=== PATIENT | female | born 1980 ===

== ENCOUNTER 2017-11-13 23:15 | Emergency (ER) | payer MEDICAID ==
[2017-11-13 23:54] VITALS: BP 111/73
--- NOTE | 2017-11-14 00:57 | ED PDOC ---
Arrival/HPI - General Chief Complaint: Lower Extremity Problem/Injury Time Seen by Provider: 11/14/17 00:06 Historian: Patient - History of Present Illness Narrative History of Present Illness (Text): 11/14/17 00:10 37 year old female, whose past medical history includes left lower extremity DVT on Xarelto, who presents to the emergency department complaining of continued pain in right leg. Patient states 4 days prior she was seen at [facility] for similar symptoms and had dopplers to rule out DVT which was negative. Patient presented today because she still has pain and is not sure if they possibly missed a blood clot. Patient also complaining of chronic back pain, and notes more pain in right lower back radiating to her right buttock and right leg. Patient denies any weakness/numbness/tingling in the extremity, abdominal pain, chest pain, fever, chills, chest pain, shortness of breath, urinary symptoms, or any other complaints. Symptom Onset: Gradual Symptom Course: Unchanged Activities at Onset: Light Context: Home Past Medical History - Provider Review Nursing Documentation Reviewed: Yes - Cardiac Hx Cardiac Disorders: No - Pulmonary Hx Respiratory Disorders: No - Neurological Hx Neurological Disorder: No - HEENT Hx HEENT Disorder: No - Renal Hx Renal Disorder: No - Endocrine/Metabolic Hx Endocrine Disorders: No - Hematological/Oncological Other/Comment: blood clot left leg - Integumentary Hx Dermatological Disorder: No - Musculoskeletal/Rheumatological Hx Musculoskeletal Disorders: No - Gastrointestinal Hx Gastrointestinal Disorders: No - Genitourinary/Gynecological Hx Genitourinary Disorders: No - Psychiatric Hx Psychophysiologic Disorder: No Hx Substance Use: No - Surgical History Hx Section: Yes Other/Comment: laporoscopy Family/Social History - Physician Review Nursing Documentation Reviewed: Yes Family/Social History: Unknown Family HX Smoking Status: Light Smoker < 10 Cigarettes Daily Hx Alcohol Use: No Frequency of alcohol use: Socially Hx Substance Use: No Allergies/Home Meds Allergies/Adverse Reactions: Allergies No Known Allergies Allergy (Verified 11/13/17 23:46) Home Medications: Home Meds Medication Instructions Recorded Confirmed Rivaroxaban [Xarelto] 20 mg PO DAILY 11/13/17 11/13/17 Review of Systems - Physician Review All systems were reviewed & negative as marked: Yes - Review of Systems Constitutional: Normal. absent: Fevers Eyes: Normal ENT: Normal Respiratory: Normal. absent: SOB, Cough Cardiovascular: Normal. absent: Chest Pain, Calf Pain Gastrointestinal: Normal. absent: Abdominal Pain, Diarrhea, Nausea, Vomiting Genitourinary Female: Normal. absent: Dysuria, Frequency, Hematuria, Urine Output Changes Musculoskeletal: Back Pain, Other (+right lower leg pain). absent: Neck Pain Skin: Normal. absent: Rash Neurological: Normal. absent: Headache, Dizziness Endocrine: Normal Hemo/Lymphatic: Normal Psychiatric: Normal Physical Exam Vital Signs Reviewed: Yes Vital Signs Temp Pulse Resp BP Pulse Ox 11/14/17 01:28 98.0 F 80 20 98 11/13/17 23:47 98.8 F 76 18 111/73 100 Temperature: Afebrile Blood Pressure: Normal Pulse: Regular Respiratory Rate: Normal Appearance: Positive for: Well-Appearing, Non-Toxic, Comfortable Pain Distress: None Mental Status: Positive for: Alert and Oriented X 3 - Systems Exam Head: Present: Atraumatic, Normocephalic Pupils: Present: PERRL Extroacular Muscles: Present: EOMI Conjunctiva: Present: Normal Mouth: Present: Moist Mucous Membranes Neck: Present: Normal Range of Motion. No: Meningeal Signs, MIDLINE TENDERNESS , Paraspinal Tenderness Respiratory/Chest: Present: Clear to Auscultation, Good Air Exchange. No: Respiratory Distress, Accessory Muscle Use Cardiovascular: Present: Regular Rate and Rhythm, Normal S1, S2. No: Murmurs Abdomen: Present: Normal Bowel Sounds. No: Tenderness, Distention, Peritoneal Signs Back: Present: Paraspinal Tenderness (Some right lower back paraspinal tenderness, tenderness over right sciatic foramen). No: CVA Tenderness, Midline Tenderness, Pain with Leg Raise Upper Extremity: Present: Normal Inspection. No: Cyanosis, Edema Lower Extremity: Present: Normal Inspection, NORMAL PULSES (Distal pulses intact ), Normal ROM (Full ROM), Neurovascularly Intact (Sensation intact), Capillary Refill < 2 s. No: Edema, CALF TENDERNESS, Cyanosis, Tenderness, Swelling, Erythema, Deformity, Temperature Abnormalties, Other (No ecchymosis) Neurological: Present: GCS=15, Speech Normal, Motor Func Grossly Intact, Normal Sensory Function, Normal Cerebellar Funct, Gait Normal Skin: Present: Warm, Dry, Normal Color. No: Rashes Psychiatric: Present: Alert, Oriented x 3, Normal Insight, Normal Concentration Medical Decision Making ED Course and Treatment: 11/14/17 00:10 Impression: 37 year old female with continued right leg pain and chronic back pain. Plan: -- US Duplex Lower Extremities -- Toradol -- Flexeril -- Reassess and disposition Progress Notes: Patient reassessment: Patient nontoxic well-appearing in no distress vitals are stable. Patient states there is minimal improvement in her symptoms but states that she has a follow-up appointment with her primary care physician tomorrow. Patient states she was extremely worried that she may have had a blood clot in the leg. Patient states her back pain has been chronic for more than 12 years. advised patient that she should consider having PMD arrange for outpatient MRI. I advised patient to follow up with primary care physician. I've advised the patient to follow up with Dr childs, advised taking Flexeril every 8 hours as needed for muscle spasms. Advised using warm compresses. I've advised immediate return if symptoms worsen or persist or if new concerning symptoms develop. pt refusing percocet for pain. Patient verbalizes understanding of discharge instructions and need for immediate followup. all aspects of this case were discussed the attending of record. 11/14/17 01:31 Impression: Leg pain, back pain Tylenol every 4 hours as needed for pain Flexeril one tablet every 8 hours as needed for muscle spasms colon may cause drowsiness Use a heating pad Follow-up with the primary care physician tomorrow Follow-up with the orthopedist/back specialist within the next 2 days Return immediately if symptoms worsen persist or if new concerning symptoms develop - RAD Interpretation Radiology Orders: 11/14/17 00:11 DUPLEX LOWER EXTRM VEIN RIGHT [US] Stat - Medication Orders Current Medication Orders: Discontinued Medications Cyclobenzaprine HCl (Flexeril) 10 mg PO STAT STA Stop: 11/14/17 00:33 Last Admin: 11/14/17 00:41 Dose: 10 mg Ketorolac Tromethamine (Toradol) 60 mg IM STAT STA Stop: 11/14/17 00:33 Last Admin: 11/14/17 00:42 Dose: 60 mg [facility] Pain Assessment Document 11/14/17 00:42 [email or web address] (Rec: 11/14/17 00:42 [email or web address] [id number]) Pain Reassessment Is this a pain reassessment? No Sleep Is patient sleeping during reassessment? No Presence of Pain Presence of Pain Yes Pain Scale Used Pain Scale Used Numeric Location Left, Right or Bilateral Right Pain Location Body Site Leg Description Description Constant Intensity of Pain at present 8 Pain Behavior Facial Grimacing Aggravating Factors Changing Position Alleviating Factors/Management Medication Techniques Alleviating Factors Medication IM Administration Charges Document 11/14/17 00:42 [email or web address] (Rec: 11/14/17 00:42 [email or web address] [id number]) Injection Site MAR Injection Site Right Gluteus Cruz Charges for Administration # of IM Administrations 1 - Scribe Statement The provider has reviewed the documentation as recorded by the Scribe Radha Martinez Provider Scribe Attestation: All medical record entries made by the Scribe were at my direction and personally dictated by me. I have reviewed the chart and agree that the record accurately reflects my personal performance of the history, physical exam, medical decision making, and the department course for this patient. I have also personally directed, reviewed, and agree with the discharge instructions and disposition. Disposition/Present on Arrival - Present on Arrival Any Indicators Present on Arrival: No History of DVT/PE: No History of Uncontrolled Diabetes: No Urinary Catheter: No History of Decub. Ulcer: No History Surgical Site Infection Following: None - Disposition Have Diagnosis and Disposition been Completed?: Yes Diagnosis: Leg pain, Back pain Disposition: HOME/ ROUTINE Disposition Time: 01:33 Patient Plan: Discharge Condition: GOOD Discharge Instructions (ExitCare): Back Pain (ED), Leg Pain (ED) Additional Instructions: Tylenol every 4 hours as needed for pain Flexeril one tablet every 8 hours as needed for muscle spasms colon may cause drowsiness Use a heating pad Follow-up with the primary care physician tomorrow Follow-up with the orthopedist/back specialist within the next 2 days Return immediately if symptoms worsen persist or if new concerning symptoms develop Prescriptions: Cyclobenzaprine [Cyclobenzaprine HCl] 10 mg PO Q8 #10 tab Referrals: Smith Traore MD [Primary Care Provider] - Follow up with primary Danny Childs MD [Staff Provider] - Follow up with primary Forms: [employer] (Maldivian)
[2017-11-14 01:29] VITALS: PULSE 80; TEMP 98
[2017-11-14 01:47] VITALS: RESP 18; O2SAT 99
--- NOTE | 2017-11-14 16:01 | US ---
PROCEDURE: Right lower extremity venous US HISTORY: Leg pain and swelling. Evaluate for DVT. PHYSICIAN(S): Sammy Faria M.D. TECHNIQUE: Duplex sonography and color-flow Doppler with graded compression were used to evaluate the deep venous system of the right lower extremity. FINDINGS: The visualized deep venous system of the right lower extremity is sonographically normal and compressible. Normal waveforms and augmentation are seen. There is no sonographic evidence for deep venous thrombosis in the visualized segments of the right lower extremity. IMPRESSION: 1. No sonographic evidence for deep venous thrombosis in the visualized segments of the right lower extremity.
== END 2017-11-14 01:47 | disposition home or self-care (01) ==
LOC: ED 23:15
DX: M79.604 Pain in right leg (principal); M54.9 Dorsalgia, unspecified; Z86.718 Personal history of other venous thrombosis and embolism; Z79.01 Long term (current) use of anticoagulants
CPT/HCPCS: 93971; 96372; 99283; J1885

== ENCOUNTER 2017-12-05 14:15 | Emergency (ER) | payer MEDICAID ==
[2017-12-05 14:35] VITALS: TEMP 99.2
--- NOTE | 2017-12-05 14:53 | ED PDOC ---
Arrival/HPI - General Chief Complaint: Lower Extremity Problem/Injury Time Seen by Provider: 12/05/17 14:48 Historian: Patient - History of Present Illness Narrative History of Present Illness (Text): 12/05/17 14:48 37 y/o female, pmh including dvt (on xarelto), nkda, c/o concerning of DVT on the LLE. Pt. stated that she has varicose vein form on the lt. lower extremity for the past 1 week, no numbness or tingling, no rash, no abdominal or pelvic pain, no other medical or psychological complaints. Past Medical History - Provider Review Nursing Documentation Reviewed: Yes - Infectious Disease Hx of Infectious Diseases: None - Reproductive Menopause: No - Cardiac Hx Cardiac Disorders: No - Pulmonary Hx Respiratory Disorders: No - Neurological Hx Neurological Disorder: No - HEENT Hx HEENT Disorder: No - Renal Hx Renal Disorder: No - Endocrine/Metabolic Hx Endocrine Disorders: No - Hematological/Oncological Other/Comment: blood clot left leg - Integumentary Hx Dermatological Disorder: No - Musculoskeletal/Rheumatological Hx Musculoskeletal Disorders: No - Gastrointestinal Hx Gastrointestinal Disorders: No - Genitourinary/Gynecological Hx Genitourinary Disorders: No - Psychiatric Hx Psychophysiologic Disorder: No Hx Substance Use: No - Surgical History Hx Section: Yes Other/Comment: laporoscopy - Anesthesia Hx Anesthesia: Yes Hx Anesthesia Reactions: No Family/Social History - Physician Review Nursing Documentation Reviewed: Yes Family/Social History: Unknown Family HX Smoking Status: Light Smoker < 10 Cigarettes Daily Hx Alcohol Use: No Hx Substance Use: No Allergies/Home Meds Allergies/Adverse Reactions: Allergies No Known Allergies Allergy (Verified 12/05/17 14:35) Home Medications: Home Meds Medication Instructions Recorded Confirmed Rivaroxaban [Xarelto] 20 mg PO DAILY 11/13/17 12/05/17 Review of Systems - Review of Systems Constitutional: absent: Fatigue, Fevers Eyes: absent: Vision Changes ENT: absent: Hearing Changes Respiratory: absent: SOB, Cough Cardiovascular: absent: Chest Pain Gastrointestinal: absent: Abdominal Pain, Nausea, Vomiting Musculoskeletal: absent: Arthralgias, Back Pain Skin: absent: Rash, Pruritis Psychiatric: absent: Anxiety, Depression, Suicidal Ideation Physical Exam Vital Signs Reviewed: Yes Vital Signs Temp Pulse Resp BP Pulse Ox 12/05/17 16:39 73 18 108/68 100 12/05/17 14:30 99.2 F 72 16 113/67 99 Temperature: Afebrile Blood Pressure: Normal Pulse: Regular Respiratory Rate: Normal Appearance: Positive for: Well-Appearing, Non-Toxic, Comfortable Pain Distress: None Mental Status: Positive for: Alert and Oriented X 3 - Systems Exam Head: Present: Atraumatic, Normocephalic Pupils: Present: PERRL Extroacular Muscles: Present: EOMI Conjunctiva: Present: Normal Ears: Present: NORMAL TM, Normal Canal. No: Erythema Mouth: Present: Moist Mucous Membranes Pharnyx: Present: Normal. No: ERYTHEMA, EXUDATE, TONSILS ENLARGED Nose (External): Present: Atraumatic. No: Abrasion, Contusion, Laceration Nose (Internal): Present: Normal Inspection, No Active Bleeding. No: Rhinorrhea Neck: Present: Normal Range of Motion, Trachea Midline. No: Meningeal Signs, MIDLINE TENDERNESS, Paraspinal Tenderness, Lymphadenopathy Respiratory/Chest: Present: Clear to Auscultation, Good Air Exchange. No: Respiratory Distress, Accessory Muscle Use Cardiovascular: Present: Regular Rate and Rhythm, Normal S1, S2. No: Murmurs Abdomen: Present: Normal Bowel Sounds. No: Tenderness, Distention, Peritoneal Signs, Rebound, Guarding Back: Present: Normal Inspection Upper Extremity: Present: Normal Inspection. No: Cyanosis, Edema Lower Extremity: Present: Normal Inspection, Other (visible mild varicose vein noted on the LLE, no bleeding, no streaking or ulcers. ). No: Edema Neurological: Present: GCS=15, CN II-XII Intact, Speech Normal, Motor Func Grossly Intact, Gait Normal, Memory Normal Skin: Present: Warm, Dry, Normal Color. No: Rashes Psychiatric: Present: Alert, Oriented x 3, Normal Insight, Normal Concentration Medical Decision Making ED Course and Treatment: 12/05/17 14:58 -LLE venuous doppler -observe and reassess 12/05/17 16:27 -LLE Venuous doppler: as per preliminary report, no acute DVT -Pt. stated that she feels well, will discharge home. -Pt. stated that she has a vascular surgeon to follow up on for her varicose vein. -Discharge home with education on continue to follow up with your vascular surgeon and pmd within 2 days, return to the ER for any new or worsening signs or symptoms. - RAD Interpretation Radiology Orders: 12/05/17 14:48 DUPLEX LOWER EXTRM VEIN LEFT [US] Stat LLE venuous doppler: as per preliminary report, no acute DVT Clinical Engineering Director: Radiologist - PA / CHANNEL DIRECTOR / Resident Statement MD/DO has reviewed & agrees with the documentation as recorded. Disposition/Present on Arrival - Present on Arrival Any Indicators Present on Arrival: No History of DVT/PE: No History of Uncontrolled Diabetes: No Urinary Catheter: No History of Decub. Ulcer: No History Surgical Site Infection Following: None - Disposition Have Diagnosis and Disposition been Completed?: Yes Diagnosis: Varicose vein of leg Disposition: HOME/ ROUTINE Disposition Time: 14:58 Patient Plan: Discharge Condition: GOOD Discharge Instructions (ExitCare): Varicose Veins and Other Vein Disease in the Legs Additional Instructions: -Discharge home with education on continue to follow up with your vascular surgeon and pmd within 2 days, return to the ER for any new or worsening signs or symptoms. Referrals: Smith Traore MD [Primary Care Provider] - Follow up with primary Forms: [employer] (Turkish), WORK NOTE
[2017-12-05 16:40] VITALS: BP 108/68; PULSE 73; RESP 18; O2SAT 100
--- NOTE | 2017-12-06 13:21 | US ---
PROCEDURE: Left lower extremity venous US HISTORY: Leg pain and swelling. Evaluate for DVT. PHYSICIAN(S): Sammy Faria MD. TECHNIQUE: Duplex sonography and color-flow Doppler with graded compression were used to evaluate the deep venous system of the left lower extremity. FINDINGS: The visualized deep venous system of the left lower extremity is sonographically normal and compressible. Normal wave forms and augmentation are seen. There is no sonographic evidence for deep venous thrombosis in the visualized segments of the left lower extremity. IMPRESSION: 1. No sonographic evidence for deep venous thrombosis in the visualized segments of the left lower extremity.
== END 2017-12-05 16:40 | disposition home or self-care (01) ==
LOC: ED 14:15
DX: I83.92 Asymptomatic varicose veins of left lower extremity (principal)

== ENCOUNTER 2018-01-14 19:27 | Emergency (ER) | payer MEDICAID ==
[2018-01-14 19:53] VITALS: BP 105/70; TEMP 98; BMI 32.3
--- NOTE | 2018-01-14 19:55 | ED PDOC ---
Arrival/HPI - General Chief Complaint: Chest Pain Time Seen by Provider: 01/14/18 19:55 Historian: Patient - History of Present Illness Narrative History of Present Illness (Text): 01/14/18 19:55 pt p/w + substernal chest pain, non-radiating over the last 2 days; + intermittent, lasting usually 10-15min; pt states at most pain is 6-7/10; + at times pleuritic; pt states the chest pain had initially started many months earlier and had been evaluated at [facility] [place] on multiple occasions (at least 2-3 times at the ED of [facility] [place] without any firm diagnosis (was prescribed PEPCID, no improvement of pt's symptoms however); pt is due to see a cardiologists this Saturday; pt states she is worried about this current episode of chest pain and decided to come to [facility] for further eval/exam; pt states + chest pain is associated with worsening sob, No palpitations, + dizziness/lightheadedness, no fever/chills/sweats, no abd pain, no n/v, no numbness/tingling, no radiation of chest pain but noted the last 2 days the chest pain has slightly expanded on her chest; pt states no rashes, no urinary/bowel changes, no fall/trauma/sick contact, no travel. pt denied LOC pt denied other complaints pt is here for further eval. PMD: Dr Traore hematology/onc: Dr Webber? (at [place]) family hx: cancer, no one with early IN hx recent hx of left leg dvt, is on xarelto pt states she is here for 2nd opinion LMP: 2 weeks ago Time/Duration: < week (2 days) Symptom Onset: Sudden Quality: Tightness, Stabbing Severity Level: 7, Severe Activities at Onset: Rest Context: Home Past Medical History - Provider Review Nursing Documentation Reviewed: Yes - Travel History Have you recently traveled outside [place] w/in the past 3 mons?: No - Past History Past History: No Previous - Infectious Disease Hx of Infectious Diseases: None - Reproductive Menopause: No Currently : No - Cardiac Hx Cardiac Disorders: Yes - Pulmonary Hx Respiratory Disorders: No - Neurological Hx Neurological Disorder: Yes Hx Dizziness: Yes - HEENT Hx HEENT Disorder: No - Renal Hx Renal Disorder: No - Endocrine/Metabolic Hx Endocrine Disorders: No - Hematological/Oncological Hx Blood Disorders: Yes Hx Anemia: Yes (iron deficiency) Other/Comment: blood clot left leg - Integumentary Hx Dermatological Disorder: No - Musculoskeletal/Rheumatological Hx Musculoskeletal Disorders: No - Gastrointestinal Hx Gastrointestinal Disorders: No - Genitourinary/Gynecological Hx Genitourinary Disorders: No Other/Comment: ovarian cyst removed - laparscopic - Psychiatric Hx Psychophysiologic Disorder: No Hx Substance Use: No - Surgical History Hx Section: Yes Other/Comment: laporoscopy - ovarian cyst removal - Anesthesia Hx Anesthesia: Yes Hx Anesthesia Reactions: No Family/Social History - Physician Review Nursing Documentation Reviewed: Yes Family/Social History: No Known Family HX Smoking Status: Light Smoker < 10 Cigarettes Daily Hx Alcohol Use: Yes Frequency of alcohol use: Socially Hx Substance Use: No Hx Substance Use Treatment: No Allergies/Home Meds Allergies/Adverse Reactions: Allergies No Known Allergies Allergy (Verified 12/05/17 14:35) Home Medications: Home Meds Medication Instructions Recorded Confirmed Rivaroxaban [Xarelto] 20 mg PO DAILY 11/13/17 01/14/18 Famotidine [Pepcid] 20 mg PO DAILY 01/14/18 01/14/18 Review of Systems - Review of Systems Constitutional: Normal Eyes: Normal ENT: Normal Respiratory: SOB Cardiovascular: Chest Pain Gastrointestinal: Normal Genitourinary Female: Normal Musculoskeletal: Normal Skin: Normal Neurological: Dizziness. absent: Headache, Focal Weakness Endocrine: Normal Hemo/Lymphatic: Normal Psychiatric: Normal Physical Exam Vital Signs Reviewed: Yes Vital Signs Temp Pulse Resp BP Pulse Ox 01/14/18 22:01 74 22 105/70 100 01/14/18 19:40 98.0 F 80 17 105/70 99 Temperature: Afebrile Blood Pressure: Normal Pulse: Regular Respiratory Rate: Normal Appearance: Positive for: Well-Appearing, Non-Toxic, Uncomfortable, Other ( uncomfortable, alert/awake, GCS=15, oriented x 3, NAD, cooperative, resting in bed) Pain Distress: None Mental Status: Positive for: Alert and Oriented X 3 - Systems Exam Head: Present: Atraumatic, Normocephalic Pupils: Present: PERRL, Other (no nystagmus, no photophobia, sclera anicteric) Extroacular Muscles: Present: EOMI Conjunctiva: Present: Normal Ears: Present: Normal Mouth: Present: Moist Mucous Membranes, Normal Teeth, Other (no dysphonia, no drooling) Pharnyx: Present: Normal Nose (External): Present: Atraumatic Nose (Internal): Present: Normal Inspection Neck: Present: Normal Range of Motion, Trachea Midline. No: Meningeal Signs, MIDLINE TENDERNESS Respiratory/Chest: Present: Clear to Auscultation, Good Air Exchange, Other ( CTA b/l, no w/r/r, no accessory muscle use noted, no tachypenia; no central chest wall crepitus/tenderness noted on exam). No: Respiratory Distress, Accessory Muscle Use, Decreased Breath Sounds Cardiovascular: Present: Regular Rate and Rhythm, Normal S1, S2. No: Murmurs Abdomen: Present: Normal Bowel Sounds, Other (well nourished/slightly obese female, no focal tenderness, no masses/rebound/gurading/rigidity, no traore's sign, no mcburney's point tenderness) Back: Present: Normal Inspection. No: CVA Tenderness, Midline Tenderness Upper Extremity: Present: Normal Inspection, Normal ROM, NORMAL PULSES, Other ( moving all limbs with ease) Lower Extremity: Present: Normal Inspection, NORMAL PULSES, Normal ROM, Neurovascularly Intact, Capillary Refill < 2 s, Other (strength 5/5 grossly intact in all limbs). No: Alvaro's Sign, Deformity Neurological: Present: GCS=15, CN II-XII Intact, Speech Normal, Other (no facial asymmetries, no slurr speech) Skin: Present: Warm, Dry, Normal Color, Other (cap refill < 1sec, no ulcerations , no petechiae, no rashes) Psychiatric: Present: Alert, Oriented x 3 Medical Decision Making ED Course and Treatment: 01/14/18 19:50 Impression: chest pain i have consider all the differential diagnosis regarding pt's chief medical complaints/clinical findings, including but are not limited to: atypical chest pain A/P: chest pain - labs - iv - ct - unlikely acs - observe - supportive care 01/14/18 23:11 pt felt some improvement pt chest pain is ~ 3-4/10 pt is made aware of her medical results pt has an appointment with cardiology in 3 days as well as to see her PCP tomorrow pt will f/u pt will be discharged home Re-evaluation Time: 23:00 Reassessment Condition: Re-examined, Improved - Lab Interpretations Lab Results: 01/14/18 20:13 01/14/18 20:13 Lab Results 01/14/18 20:15: Urine Color Yellow, Urine Appearance Sl cloudy, Urine pH 6.0, Ur Specific [place] 1.025, Urine Protein Negative, Urine Glucose (UA) Negative, Urine Ketones Trace H, Urine Blood Large H, Urine Nitrate Negative, Urine Bilirubin Negative, Urine Urobilinogen 0.2, Ur Leukocyte Esterase Negative, Urine RBC 2 - 5, Urine WBC 0 - 2, Ur Epithelial Cells 4 - 5, Urine Bacteria Few 01/14/18 20:13: PT 22.4 H, INR 1.94 H, APTT 30.7 01/14/18 20:13: Sodium 140, Potassium 4.7, Chloride 105, Carbon Dioxide 28, Anion Gap 12, BUN 15, Creatinine 0.7, Est GFR ( Amer) > 60, Est GFR (Non- Af Amer) > 60, Random Glucose 86, Calcium 9.2, Magnesium 2.0, Total Bilirubin 0.5, AST 41 H, ALT 32, Alkaline Phosphatase 58, Lactate Dehydrogenase 741 H, Total Creatine Kinase 63, Troponin I 0.02, NT-Pro-B Natriuret Pep 33.9, Total Protein 7.7, Albumin 3.9, Globulin 3.8, Albumin/Globulin Ratio 1.0 L 01/14/18 20:13: WBC 9.6, RBC 4.38, Hgb 10.1 L, Hct 32.2 L, MCV 73.5 L, MCH 23.1 L, MCHC 31.4, RDW 14.6 H, Plt Count 384, MPV 10.2, Gran % 63.0, Lymph % (Auto) 28.3, [place] % (Auto) 7.7 H, Eos % (Auto) 0.9 L, Baso % (Auto) 0.1, Gran # 6.05, Lymph # (Auto) 2.7, [place] # (Auto) 0.7 H, Eos # (Auto) 0.1, Baso # (Auto) 0.01 I have reviewed the lab results: Yes Interpretation: All labs normal - RAD Interpretation Narrative RAD Interpretations (Text): 01/14/18 23:08 Patient Name: ELAINE RAMÍREZ Pt. Address: [address] [place] [address] Rec #: [id number] [place] [id number] Ordering Dr: South Morales MD Pt Order Location: ED : 1980 Female Age: 37 Order #: [id number] Reason for exam: hx of left leg dvt, now with chest pain CT Scan ANGIO CHEST PE PROTOCOL Exam Date: 01/14/18 This imaging exam was performed at [facility] EXAM: CT Angiography Chest With Intravenous Contrast CLINICAL HISTORY: 37 years old, female; Pain; Chest pain; Type not specified; Additional info: HX of left leg dvt, now with chest pain TECHNIQUE: Axial computed tomographic angiography images of the chest with intravenous contrast using pulmonary embolism protocol. All CT scans at this facility use one or more dose reduction techniques, viz.: automated exposure control; ma/kV adjustment per patient size (including targeted exams where dose is matched to indication; i.e. head); or iterative reconstruction technique. MIP reconstructed images were created and reviewed. Coronal and sagittal reformatted images were created and reviewed. CONTRAST: 100 mL of OMNI 350 administered intravenously. COMPARISON: DX - CHEST PORTABLE 2018-01-14 20:22 FINDINGS: Limitations: Motion artifact - mild. Pulmonary arteries: No definite pulmonary embolism. Aorta: No aneurysm. No dissection. Lungs: No consolidation. 0.2 cm RIGHT lower lobe nodule. Pleural space: No significant effusion. No pneumothorax. Heart: Borderline cardiomegaly. No significant pericardial effusion. Bones/joints: Mild levoscoliosis. No acute fracture. Soft tissues: Unremarkable. Lymph nodes: No pathologically enlarged lymph nodes. IMPRESSION: 1. No definite CT evidence of pulmonary embolism. 2. Pulmonary nodule. For low-risk patients, no follow-up is necessary. For high-risk patients (smoking history or other known risk factors) an optional CT at 12 months could be performed. 3. Incidental/non-acute findings are described above. Dictated By: Paolo Jimenez MD Dictated Date/Time: 01/14/182221 Signed By: Paolo Jimenez MD Date Signed: 2221 Transcribed By: JILLIAN Transcribe Date/Time : 01/14/182221 Radiology Orders: 01/14/18 19:56 CHEST PORTABLE [RAD] Stat 01/14/18 19:57 ANGIO CHEST PE PROTOCOL [CT] Stat Yard Engineer: Radiologist - EKG Interpretation EKG Interpretation (Text): 01/14/18 20:20 NSR at 80 bpm, normal axis, no ectopy, no st-t changes, NORMAL EKG; no old ekg to compare with Interpreted by ED Physician: Yes Type: 12 lead EKG Comparison: No previous EKG avail. - Medication Orders Current Medication Orders: Discontinued Medications Ketorolac Tromethamine (Toradol) 30 mg IVP STAT STA Stop: 01/14/18 22:34 Last Admin: 01/14/18 22:46 Dose: 30 mg MAR Pain Assessment Document 01/14/18 22:46 CNR (Rec: 01/14/18 22:46 CNR [id number]) Pain Reassessment Is this a pain reassessment? Yes IVP Administration Document 01/14/18 22:46 CNR (Rec: 01/14/18 22:46 CNR [id number]) Charges for Administration # of IVP Administrations 1 Disposition/Present on Arrival - Present on Arrival Any Indicators Present on Arrival: No History of DVT/PE: Yes History of Uncontrolled Diabetes: No Urinary Catheter: No History of Decub. Ulcer: No History Surgical Site Infection Following: None - Disposition Have Diagnosis and Disposition been Completed?: Yes Diagnosis: Chest pain of unknown etiology, Pulmonary nodule Disposition: HOME/ ROUTINE Disposition Time: 22:57 Patient Plan: Discharge Condition: STABLE Discharge Instructions (ExitCare): Chest Pain (ED), Pulmonary Nodule Print Language: CENTRAL AFRICAN Additional Instructions: Make sure to see your doctor in 1-2 days DRINK PLENTY OF FLUIDS take your medications as prescribed RETURN TO ED IF worse pain, cant breath, persistent vomiting, high fever >101- 102 for hours, altered behavior, slurr speech, facial changes, focal weakness ( arm/leg or both), unable to urinate, heavy/persistent bleeding, passing out, chest pain, or other medical emergencies Prescriptions: Ibuprofen [Motrin] 400 mg PO QID PRN #20 tab PRN Reason: Pain, Mild (1-3) Referrals: Smith Traore MD [Primary Care Provider] - Follow up with primary Forms: Contacts+ (Uzbek)
[2018-01-14 20:29] LABS: CALCIUM 9.2 mg/dL (8.4-10.5); GFR AFRICAN-AMERICAN > 60; GFR NON-AFRICAN AMERICAN > 60
[2018-01-14 20:32] LABS: URINE BILIRUBIN NEGATIVE (NEGATIVE); URINE BLOOD LARGE (NEGATIVE); URINE GLUCOSE (UA) NEGATIVE (NEGATIVE); URINE LEUKOCYTE ESTERASE NEGATIVE Leu/uL (NEGATIVE); URINE PROTEIN NEGATIVE mg/dL (<30 mg/dL); URINE UROBILINOGEN 0.2 E.U./dL (<1 E.U./dL)
[2018-01-14 20:33] LABS: BASO # 0.01 K/mm3 (0.0-2.0); BASO % 0.1 % (0.0-3.0); EOS # 0.1 (0.0-0.7); EOS % 0.9 % (1.5-5.0); GRAN # 6.05 (1.4-6.5); HEMOGLOBIN 10.1 g/dL (12.0-16.0); LYMPH # 2.7 (1.2-3.4); LYMPH % 28.3 % (22.0-35.0); MEAN CELL VOLUME 73.5 fl (80.0-105.0); MEAN CORPUSCULAR HEMOGLOBIN 23.1 pg (25.0-35.0); MEAN CORPUSCULAR HGB CONC 31.4 g/dl (31.0-37.0); MEAN PLATELET VOLUME 10.2 fl (7.0-11.0); MONO # 0.7 (0.1-0.6); MONO % 7.7 % (1.0-6.0); RBC 4.38 10^6/uL (3.5-6.1); RED CELL DISTRIBUTION WIDTH 14.6 % (11.5-14.5); WHITE BLOOD COUNT 9.6 10^3/ul (4.5-11.0)
[2018-01-14 20:40] LABS: B-TYPE NATRIURETIC PEPTIDE 33.9 pg/mL (0-450)
[2018-01-14 20:48] LABS: INR 1.94 (0.93-1.08); PARTIAL THROMBOPLASTIN TIME 30.7 Seconds (25.1-36.5); PROTHROMBIN TIME 22.4 SECONDS (9.4-12.5)
[2018-01-14 21:00] LABS: URINE APPEARANCE SL CLOUDY (CLEAR); URINE COLOR YELLOW (YELLOW)
[2018-01-14 21:03] LABS: ALBUMIN 3.9 g/dL (3.0-4.8); ALT/SGPT 32 U/L (7-56); AST/SGOT 41 U/L (14-36); BLOOD UREA NITROGEN 15 mg/dL (7-21); TROPONIN I 0.02 ng/mL
[2018-01-14 21:06] LABS: URINE BACTERIA FEW (NEG); URINE WBC 0 - 2 /hpf (0-6)
[2018-01-14 22:02] VITALS: PULSE 74; RESP 22; O2SAT 100
--- NOTE | 2018-01-14 22:22 | CT ---
EXAM: CT Angiography Chest With Intravenous Contrast CLINICAL HISTORY: 37 years old, female; Pain; Chest pain; Type not specified; Additional info: HX of left leg dvt, now with chest pain TECHNIQUE: Axial computed tomographic angiography images of the chest with intravenous contrast using pulmonary embolism protocol. All CT scans at this facility use one or more dose reduction techniques, viz.: automated exposure control; ma/kV adjustment per patient size (including targeted exams where dose is matched to indication; i.e. head); or iterative reconstruction technique. MIP reconstructed images were created and reviewed. Coronal and sagittal reformatted images were created and reviewed. CONTRAST: 100 mL of OMNI 350 administered intravenously. COMPARISON: DX - CHEST PORTABLE 2018-01-14 20:22 FINDINGS: Limitations: Motion artifact - mild. Pulmonary arteries: No definite pulmonary embolism. Aorta: No aneurysm. No dissection. Lungs: No consolidation. 0.2 cm RIGHT lower lobe nodule. Pleural space: No significant effusion. No pneumothorax. Heart: Borderline cardiomegaly. No significant pericardial effusion. Bones/joints: Mild levoscoliosis. No acute fracture. Soft tissues: Unremarkable. Lymph nodes: No pathologically enlarged lymph nodes. IMPRESSION: 1. No definite CT evidence of pulmonary embolism. 2. Pulmonary nodule. For low-risk patients, no follow-up is necessary. For high-risk patients (smoking history or other known risk factors) an optional CT at 12 months could be performed. 3. Incidental/non-acute findings are described above.
[2018-01-14] MEDS ORDERED: Iodixanol 320 MG/ML 100 ML BOTTLE IV ONE (22:29)
--- NOTE | 2018-01-15 08:08 | RAD ---
HISTORY: chest pain COMPARISON: No prior. FINDINGS: LUNGS: No acute pulmonary disease. Note is made of a 2 mm right lower lobe pulmonary nodule in subsequent chest CT also performed 01/14/2018. PLEURA: No significant pleural effusion identified, no pneumothorax apparent. CARDIOVASCULAR: Normal. OSSEOUS STRUCTURES: No significant abnormalities. VISUALIZED UPPER ABDOMEN: Normal. OTHER FINDINGS: Incidental nipple rings identified bilaterally. IMPRESSION: No acute cardiopulmonary disease appreciated.Note is made of a 2 mm right lower lobe pulmonary nodule in subsequent chest CT also performed 01/14/2018. Please see separate report.
--- NOTE | 2018-01-15 21:02 | CARD ---
APPROVED REPORT EKG Measurement Heart [id number] <Conclusion> Normal sinus rhythm Normal ECG
== END 2018-01-14 23:20 | disposition home or self-care (01) ==
LOC: ED 19:27
DX: R91.1 Solitary pulmonary nodule (principal); R07.9 Chest pain, unspecified; F17.210 Nicotine dependence, cigarettes, uncomplicated
CPT/HCPCS: 71045; 71275; 80053; 81001; 82550; 83615; 83735; 83880; 84484; 85025; 85610; 85730; 93005; 96374; 99285; J1885; Q9967

== ENCOUNTER 2018-02-03 22:55 | Emergency (ER) | payer MEDICAID ==
[2018-02-03 23:11] VITALS: RESP 18; TEMP 98.6; BMI 32.6
[2018-02-04 00:08] LABS: PH,URINE 6.5 (4.7-8.0); URINE BILIRUBIN NEGATIVE (NEGATIVE); URINE BLOOD MODERATE (NEGATIVE); URINE GLUCOSE (UA) NEGATIVE (NEGATIVE); URINE LEUKOCYTE ESTERASE NEGATIVE Leu/uL (NEGATIVE); URINE PROTEIN NEGATIVE mg/dL (<30 mg/dL); URINE UROBILINOGEN 0.2 E.U./dL (<1 E.U./dL)
[2018-02-04 00:14] LABS: URINE APPEARANCE CLEAR (CLEAR); URINE COLOR YELLOW (YELLOW)
[2018-02-04 00:23] LABS: URINE WBC 0 - 2 /hpf (0-6)
[2018-02-04 00:33] LABS: BASO # 0.02 K/mm3 (0.0-2.0); BASO % 0.2 % (0.0-3.0); EOS # 0.1 (0.0-0.7); EOS % 1.3 % (1.5-5.0); GRAN # 5.6 (1.4-6.5); GRAN % 65.2 % (50.0-68.0); HEMOGLOBIN 10.2 g/dL (12.0-16.0); LYMPH # 2.4 (1.2-3.4); LYMPH % 28.1 % (22.0-35.0); MEAN CELL VOLUME 76.1 fl (80.0-105.0); MEAN CORPUSCULAR HEMOGLOBIN 23.7 pg (25.0-35.0); MEAN CORPUSCULAR HGB CONC 31.1 g/dl (31.0-37.0); MEAN PLATELET VOLUME 9.7 fl (7.0-11.0); MONO # 0.5 (0.1-0.6); MONO % 5.2 % (1.0-6.0); RBC 4.31 10^6/uL (3.5-6.1); RED CELL DISTRIBUTION WIDTH 17.9 % (11.5-14.5); WHITE BLOOD COUNT 8.6 10^3/ul (4.5-11.0)
[2018-02-04 00:40] LABS: ALB/GLOB RATIO 1.2 (1.1-1.8); ALT/SGPT 69 U/L (7-56); AST/SGOT 32 U/L (14-36); BLOOD UREA NITROGEN 20 mg/dL (7-21); CALCIUM 8.8 mg/dL (8.4-10.5); GFR AFRICAN-AMERICAN > 60; GFR NON-AFRICAN AMERICAN > 60
[2018-02-04 00:50] LABS: TROPONIN I < 0.01 ng/mL
[2018-02-04 00:51] LABS: D DIMER < 200 ng/mL (0-243); INR 1.36 (0.93-1.08); PARTIAL THROMBOPLASTIN TIME 25.1 Seconds (25.1-36.5); PROTHROMBIN TIME 15.6 SECONDS (9.4-12.5)
--- NOTE | 2018-02-04 00:59 | ED PDOC ---
Arrival/HPI <Shady Mendoza - Last Filed: 02/04/18 01:29> - General Historian: Patient <Cassie Lopez - Last Filed: 02/04/18 02:14> - General Chief Complaint: Chest Pain Time Seen by Provider: 02/03/18 23:25 - History of Present Illness Narrative History of Present Illness (Text): 02/04/18 00:57 37yr old female presents today with intermittent chest pain for "months". pt states she has a sharp left sided chest pain that comes and goes. pt states she has been seen in the ER multiples times for this same chest pain. pt states she is currently on xarelto for history of DVT. Patient states she was seen in the emergency room earlier in the month and had lab work and a CAT scan of the chest which was normal. Patient states the pain started early this morning and has been constant throughout the whole day. Patient states the pain is very similar to the pain that she's had in the past. She denies radiation of the pain to the back. She denies shortness of breath at present time. She denies any calf pain or swelling. She denies abdominal pain. No nausea or vomiting. She denies dizziness or weakness. Patient states she is followed with her primary care physician multiple times in the past but has not seen a med spec for this pain. 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 (Cassie Lopez) Past Medical History - Provider Review Nursing Documentation Reviewed: Yes - Travel History Have you recently traveled outside [place] w/in the past 3 mons?: No - Past History Past History: No Previous - Infectious Disease Hx of Infectious Diseases: None - Cardiac Hx Cardiac Disorders: No - Pulmonary Hx Respiratory Disorders: No - Neurological Hx Neurological Disorder: No - HEENT Hx HEENT Disorder: No - Renal Hx Renal Disorder: No - Endocrine/Metabolic Hx Endocrine Disorders: No - Hematological/Oncological Hx Blood Disorders: Yes Hx Anemia: Yes (iron deficiency) Other/Comment: blood clot left leg - Integumentary Hx Dermatological Disorder: No - Musculoskeletal/Rheumatological Hx Musculoskeletal Disorders: Yes Other/Comment: DVT - Gastrointestinal Hx Gastrointestinal Disorders: No - Genitourinary/Gynecological Hx Genitourinary Disorders: Yes Other/Comment: ovarian cyst removed - laparscopic - Psychiatric Hx Psychophysiologic Disorder: No Hx Substance Use: No - Surgical History Other/Comment: laporoscopy - Anesthesia Hx Anesthesia: Yes Hx Anesthesia Reactions: No <OmegaDandy mohanrosario Dong - Last Filed: 02/04/18 02:14> Family/Social History - Physician Review Nursing Documentation Reviewed: Yes Family/Social History: Unknown Family HX Smoking Status: Light Smoker < 10 Cigarettes Daily Hx Alcohol Use: Yes Hx Substance Use: No Hx Substance Use Treatment: No <Cassie Lopez - Last Filed: 02/04/18 02:14> Allergies/Home Meds <Shady Mendoza - Last Filed: 02/04/18 01:29> <Cassie Lopez - Last Filed: 02/04/18 02:14> Allergies/Adverse Reactions: Allergies No Known Allergies Allergy (Verified 02/03/18 23:01) Home Medications: Home Meds Medication Instructions Recorded Confirmed Rivaroxaban [Xarelto] 20 mg PO DAILY 11/13/17 02/03/18 Review of Systems - Review of Systems Constitutional: absent: Fatigue, Fevers ENT: absent: Sore Throat Respiratory: absent: SOB, Cough Cardiovascular: Chest Pain. absent: Palpitations Gastrointestinal: absent: Abdominal Pain, Nausea, Vomiting Genitourinary Female: absent: Dysuria Musculoskeletal: absent: Arthralgias Skin: absent: Rash, Pruritis Neurological: absent: Headache, Dizziness Psychiatric: absent: Anxiety, Depression, Suicidal Ideation <OmegaDandy mohanrosario Dong - Last Filed: 02/04/18 02:14> Physical Exam Vital Signs Reviewed: Yes Temperature: Afebrile Blood Pressure: Normal Pulse: Regular Respiratory Rate: Normal Appearance: Positive for: Well-Appearing, Non-Toxic, Comfortable Pain Distress: None Mental Status: Positive for: Alert and Oriented X 3 - Systems Exam Head: Present: Atraumatic Mouth: Present: Moist Mucous Membranes Neck: Present: Normal Range of Motion Respiratory/Chest: Present: Clear to Auscultation, Good Air Exchange. No: Respiratory Distress, Accessory Muscle Use, Tachypneic Cardiovascular: Present: Regular Rate and Rhythm, Normal S1, S2. No: Murmurs Abdomen: No: Tenderness, Distention, Peritoneal Signs, Rebound, Guarding Back: Present: Normal Inspection. No: CVA Tenderness, Midline Tenderness, Paraspinal Tenderness Upper Extremity: Present: Normal ROM Lower Extremity: Present: Normal ROM Neurological: Present: GCS=15, Speech Normal Skin: Present: Warm, Dry, Normal Color. No: Rashes Psychiatric: Present: Alert, Oriented x 3 <Cassie Lopez - Last Filed: 02/04/18 02:14> Vital Signs Temp Pulse Resp BP Pulse Ox 02/03/18 23:09 98.6 F 78 18 129/74 100 Medical Decision Making <Shady Mendoza - Last Filed: 02/04/18 01:29> <Cassie Lopez - Last Filed: 02/04/18 02:14> ED Course and Treatment: 02/04/18 01:00 pt with chest pain intermittently for many months; vitals stable cbc; wnl cmp; wnl d dimer; <200 trop: wnl ekg; normal sinus rhythm at 77 bpm normal axis normal intervals no ST elevations QTC 463 cxr: wnl pt reassessment; pt is non toxic well appearing; no distress. stable vitals. i discussed all results in depth with patient; pt with intermittent cp for months, on xarelto; negative dimer, negative troponin. pt comfortable in er. pt stressed that she needs f/u with med spec ALEAH. stressed importance of immediate return if symptoms worsen,persist or if new symptoms develop. Patient verbalizes understanding of discharge instructions and need for immediate followup. all aspects of this case were discussed the attending of record. impression; chest pain follow up with the primary care physician within the next 2 days follow up with the med spec within the next 2 days. return immediately if symptoms worsen,persist or if new symptoms develop. ( Cassie Lopez) - Lab Interpretations Lab Results: 02/03/18 23:25 02/03/18 23:25 Lab Results 02/04/18 00:07: PT 15.6 H, INR 1.36 H, APTT 25.1, D-Dimer, Quantitative < 200 02/03/18 23:53: Urine Color Yellow, Urine Appearance Clear, Urine pH 6.5, Ur Specific [place] 1.020, Urine Protein Negative, Urine Glucose (UA) Negative, Urine Ketones Negative, Urine Blood Moderate H, Urine Nitrate Negative, Urine Bilirubin Negative, Urine Urobilinogen 0.2, Ur Leukocyte Esterase Negative, Urine RBC 2 - 5, Urine WBC 0 - 2, Ur Epithelial Cells 1 - 3, Urine Other Mucus 02/03/18 23:25: Sodium 141, Potassium 3.8, Chloride 107, Carbon Dioxide 26, Anion Gap 13, BUN 20, Creatinine 0.7, Est GFR ( Amer) > 60, Est GFR (Non- Af Amer) > 60, Random Glucose 100, Calcium 8.8, Magnesium 2.0, Total Bilirubin 0.3, AST 32, ALT 69 H, Alkaline Phosphatase 69, Lactate Dehydrogenase 324 L, Total Creatine Kinase 72, Troponin I < 0.01 D, Total Protein 7.5, Albumin 4.0, Globulin 3.5, Albumin/Globulin Ratio 1.2 02/03/18 23:25: WBC 8.6, RBC 4.31, Hgb 10.2 L, Hct 32.8 L, MCV 76.1 L, MCH 23.7 L, MCHC 31.1, RDW 17.9 H, Plt Count 328, MPV 9.7, Gran % 65.2, Lymph % (Auto) 28.1, [place] % (Auto) 5.2, Eos % (Auto) 1.3 L, Baso % (Auto) 0.2, Gran # 5.60, Lymph # (Auto) 2.4, [place] # (Auto) 0.5, Eos # (Auto) 0.1, Baso # (Auto) 0.02 - RAD Interpretation Radiology Orders: 02/04/18 00:56 CHEST PORTABLE [RAD] Stat - PA / TECHNICAL BUSINESS SYSTEMS ANALYST / Resident Statement /DO has reviewed & agrees with the documentation as recorded. <Shady Mendoza - Last Filed: 02/04/18 01:29> Disposition/Present on Arrival <Shady Mendoza - Last Filed: 02/04/18 01:29> - Present on Arrival Any Indicators Present on Arrival: Yes History of DVT/PE: Yes History of Uncontrolled Diabetes: No Urinary Catheter: No History of Decub. Ulcer: No History Surgical Site Infection Following: None - Disposition Have Diagnosis and Disposition been Completed?: Yes Disposition Time: 02:12 Patient Plan: Discharge <Cassie Lopez - Last Filed: 02/04/18 02:14> - Disposition Diagnosis: Chest pain Disposition: HOME/ ROUTINE Patient Problems: Current Active Problems Problem Status Onset Chest pain Acute Condition: GOOD Discharge Instructions (ExitCare): Chest Pain (ED) Additional Instructions: follow up with the primary care physician within the next 2 days follow up with the med spec within the next 2 days. return immediately if symptoms worsen,persist or if new symptoms develop. Referrals: Smith Traore MD [Family Provider] - Follow up with primary Latasha Longo MD [Staff Provider] - Follow up with primary Sammy Riggs MD [Staff Provider] - Follow up with primary Yasir Aguillon MD [Staff Provider] - Follow up with primary Forms: [facility] ([place]), WORK NOTE
[2018-02-04 02:12] VITALS: BP 147/74; PULSE 81; O2SAT 99
--- NOTE | 2018-02-04 07:47 | RAD ---
HISTORY: chest pain COMPARISON: 01/14/2018 FINDINGS: LUNGS: No active pulmonary disease. PLEURA: No significant pleural effusion identified, no pneumothorax apparent. CARDIOVASCULAR: Normal. OSSEOUS STRUCTURES: No significant abnormalities. VISUALIZED UPPER ABDOMEN: Normal. OTHER FINDINGS: None. IMPRESSION: No active disease.
--- NOTE | 2018-02-04 10:53 | CARD ---
APPROVED REPORT EKG Measurement Heart [id number] <Conclusion> Normal sinus rhythm Normal ECG
== END 2018-02-04 02:13 | disposition home or self-care (01) ==
LOC: ED 22:55
DX: R07.9 Chest pain, unspecified (principal); D50.9 Iron deficiency anemia, unspecified; Z86.718 Personal history of other venous thrombosis and embolism

== ENCOUNTER 2018-03-05 21:13 | Emergency (ER) | payer MEDICAID ==
[2018-03-05 21:13] VITALS: BMI 32.6
--- NOTE | 2018-03-05 21:33 | ED PDOC ---
Arrival/HPI - General Time Seen by Provider: 03/05/18 21:28 Historian: Patient - History of Present Illness Narrative History of Present Illness (Text): 03/05/18 21:28 37 y/o female, pmh including DVT, nkda, currently on xarelto, c/o lt. lower leg pain which she is concerning about the new on set of DVT again. Pt. stated that she has been having lt. knee/calf pain on and off, aching pain, no fall or trauma, no numbness or tingling, no rash, no night sweat, no limping, no new injury or fall, no other medical or psychological complaints. Past Medical History - Provider Review Nursing Documentation Reviewed: Yes - Past History Past History: No Previous - Infectious Disease Hx of Infectious Diseases: None - Cardiac Hx Cardiac Disorders: No - Pulmonary Hx Respiratory Disorders: No - Neurological Hx Neurological Disorder: No - HEENT Hx HEENT Disorder: No - Renal Hx Renal Disorder: No - Endocrine/Metabolic Hx Endocrine Disorders: No - Hematological/Oncological Hx Blood Disorders: Yes Hx Anemia: Yes (iron deficiency) Other/Comment: blood clot left leg - Integumentary Hx Dermatological Disorder: No - Musculoskeletal/Rheumatological Hx Musculoskeletal Disorders: Yes Other/Comment: DVT - Gastrointestinal Hx Gastrointestinal Disorders: No - Genitourinary/Gynecological Hx Genitourinary Disorders: Yes Other/Comment: ovarian cyst removed - laparscopic - Psychiatric Hx Psychophysiologic Disorder: No Hx Substance Use: No - Surgical History Other/Comment: laporoscopy - Anesthesia Hx Anesthesia: Yes Hx Anesthesia Reactions: No Family/Social History - Physician Review Nursing Documentation Reviewed: Yes Family/Social History: Unknown Family HX Smoking Status: Light Smoker < 10 Cigarettes Daily Hx Alcohol Use: Yes Hx Substance Use: No Hx Substance Use Treatment: No Allergies/Home Meds Allergies/Adverse Reactions: Allergies No Known Allergies Allergy (Verified 02/03/18 23:01) Home Medications: Home Meds Medication Instructions Recorded Confirmed Rivaroxaban [Xarelto] 20 mg PO DAILY 11/13/17 03/05/18 Review of Systems - Review of Systems Constitutional: absent: Fatigue, Fevers Eyes: absent: Vision Changes ENT: absent: Hearing Changes Respiratory: absent: SOB, Cough Cardiovascular: absent: Chest Pain Gastrointestinal: absent: Abdominal Pain, Nausea, Vomiting Musculoskeletal: Arthralgias, Myalgias. absent: Back Pain, Joint Swelling Skin: absent: Rash, Pruritis, Skin Lesions Neurological: absent: Headache, Dizziness Psychiatric: absent: Anxiety, Depression, Suicidal Ideation Physical Exam Vital Signs Temp Pulse Resp BP Pulse Ox 03/05/18 21:33 98.2 F 76 18 118/64 98 Pain Distress: Mild Mental Status: Positive for: Alert and Oriented X 3 - Systems Exam Head: Present: Atraumatic, Normocephalic Pupils: Present: PERRL Extroacular Muscles: Present: EOMI Conjunctiva: Present: Normal Mouth: Present: Moist Mucous Membranes Neck: Present: Normal Range of Motion Respiratory/Chest: Present: Clear to Auscultation, Good Air Exchange. No: Respiratory Distress, Accessory Muscle Use Cardiovascular: Present: Regular Rate and Rhythm, Normal S1, S2. No: Murmurs Abdomen: No: Tenderness, Distention, Peritoneal Signs Back: Present: Normal Inspection Upper Extremity: Present: Normal Inspection. No: Cyanosis, Edema Lower Extremity: Present: Normal Inspection, Other (Lt. lower extremity: no knee joint tenderness or swelling, mild +ttp on the lt. calf, no pedal edema, FROM without limitation, sensation intact, motor 5/5, +DPPT pulses, capillary refill< 2 seconds, neurovascular intact. ). No: Edema Neurological: Present: GCS=15, CN II-XII Intact, Speech Normal Skin: Present: Warm, Dry, Normal Color. No: Rashes Psychiatric: Present: Alert, Oriented x 3, Normal Insight, Normal Concentration Medical Decision Making ED Course and Treatment: 03/05/18 21:34 -Lt. knee xray -LLE venuous doppler -Tylenol -Observe and reassess 03/05/18 23:46 -Urine hcg is negative -LLE venouous doppler as per preliminary report show no acute DVT -Discharge home with education on bed rest, tylenol, avoid gym and exercise, follow up with your own pmd and orthopedic within 2 days, return to the ER for any new or worsening signs or symptoms. - Lab Interpretations Lab Results: Lab Results 03/05/18 23:00: Urine HCG, Qual Negative - RAD Interpretation Radiology Orders: 03/05/18 21:36 DUPLEX LOWER EXTRM VEIN LEFT [US] Stat - PA / CUSTOMER SUPPORT ASSOCIATE / Resident Statement MD/DO has reviewed & agrees with the documentation as recorded. Disposition/Present on Arrival - Present on Arrival Any Indicators Present on Arrival: No History of DVT/PE: Yes History of Uncontrolled Diabetes: No Urinary Catheter: No History of Decub. Ulcer: No History Surgical Site Infection Following: None - Disposition Have Diagnosis and Disposition been Completed?: Yes Diagnosis: Leg pain Disposition: HOME/ ROUTINE Disposition Time: 21:34 Patient Plan: Discharge Condition: GOOD Additional Instructions: -Discharge home with education on bed rest, tylenol, avoid gym and exercise, follow up with your own pmd and orthopedic within 2 days, return to the ER for any new or worsening signs or symptoms. Prescriptions: Acetaminophen [Tylenol 325mg tab] 2 tab PO QID PRN #30 tab PRN Reason: Other Referrals: Smith Traore MD [Primary Care Provider] - Follow up with primary Jose Juan Forbes MD [Staff Provider] - Follow up with primary Forms: WORK NOTE
[2018-03-05 21:40] VITALS: O2SAT 98
[2018-03-05 23:59] VITALS: BP 122/77; PULSE 90; RESP 16; TEMP 98.9
== END 2018-03-05 23:57 | disposition home or self-care (01) ==
LOC: ED 21:13
DX: M79.605 Pain in left leg (principal)

== ENCOUNTER 2018-06-01 19:11 | Emergency (ER) | payer MEDICAID ==
[2018-06-01 19:12] VITALS: BMI 32.6
[2018-06-01 20:15] LABS: BASO # 0.01 K/mm3 (0.0-2.0); BASO % 0.1 % (0.0-3.0); EOS # 0.1 (0.0-0.7); GRAN # 6.8 (1.4-6.5); GRAN % 68.2 % (50.0-68.0); HEMOGLOBIN 13.2 g/dL (12.0-16.0); LYMPH # 2.5 (1.2-3.4); LYMPH % 24.7 % (22.0-35.0); MEAN CELL VOLUME 82.9 fl (80.0-105.0); MEAN CORPUSCULAR HEMOGLOBIN 27.2 pg (25.0-35.0); MEAN CORPUSCULAR HGB CONC 32.8 g/dl (31.0-37.0); MEAN PLATELET VOLUME 9.5 fl (7.0-11.0); MONO # 0.6 (0.1-0.6); RBC 4.86 10^6/uL (3.5-6.1); RED CELL DISTRIBUTION WIDTH 13.6 % (11.5-14.5)
[2018-06-01 20:16] LABS: URINE BILIRUBIN NEGATIVE (NEGATIVE); URINE BLOOD LARGE (NEGATIVE); URINE GLUCOSE (UA) NEGATIVE (NEGATIVE); URINE LEUKOCYTE ESTERASE NEGATIVE Leu/uL (NEGATIVE); URINE PROTEIN TRACE mg/dL (<30 mg/dL); URINE UROBILINOGEN 0.2 E.U./dL (<1 E.U./dL)
[2018-06-01 20:17] LABS: URINE APPEARANCE CLEAR (CLEAR); URINE COLOR LIGHT YELLOW (YELLOW)
[2018-06-01 20:24] LABS: INR 1.21; PROTHROMBIN TIME 13.8 SECONDS (9.4-12.5)
[2018-06-01 20:25] LABS: URINE BACTERIA NEG (NEG); URINE WBC NEGATIVE /hpf (0-6)
[2018-06-01 20:42] LABS: ALB/GLOB RATIO 1.1 (1.1-1.8); ALBUMIN 4.4 g/dL (3.0-4.8); ALT/SGPT 204 U/L (7-56); AST/SGOT 105 U/L (14-36); BLOOD UREA NITROGEN 15 mg/dL (7-21); CALCIUM 8.9 mg/dL (8.4-10.5); GFR AFRICAN-AMERICAN > 60; GFR NON-AFRICAN AMERICAN > 60
[2018-06-01 20:53] LABS: TROPONIN I < 0.01 ng/mL
[2018-06-01] MEDS ORDERED: Iohexol 350 MG/100 ML VIAL ONE (20:54)
--- NOTE | 2018-06-01 21:32 | ED PDOC ---
Arrival/HPI - General Chief Complaint: Chest Pain Time Seen by Provider: 06/01/18 19:25 Historian: Patient - History of Present Illness Narrative History of Present Illness (Text): 06/01/18 19:40 Too Robertson is a 37 year old female, whose past medical history includes DVT on Xarelto, who presents to the Emergency department complaining of left-sided chest pain for the past few days. Patient was concerned due to her past medical history of DVT and came in for further evaluation. Patient denies any fever, chills, shortness of breath, nausea, vomiting, diarrhea, urinary symptoms, back pain, neck pain, headache, dizziness, or any other complaints. Symptom Onset: Gradual Symptom Course: Unchanged Activities at Onset: Light Context: Home Past Medical History - Provider Review Nursing Documentation Reviewed: Yes - Past History Past History: No Previous - Infectious Disease Hx of Infectious Diseases: None - Cardiac Hx Cardiac Disorders: No - Pulmonary Hx Respiratory Disorders: No - Neurological Hx Neurological Disorder: No - HEENT Hx HEENT Disorder: No - Renal Hx Renal Disorder: No - Endocrine/Metabolic Hx Endocrine Disorders: No - Hematological/Oncological Hx Blood Disorders: Yes Hx Anemia: Yes (iron deficiency) Other/Comment: blood clot left leg - Integumentary Hx Dermatological Disorder: No - Musculoskeletal/Rheumatological Hx Musculoskeletal Disorders: Yes Other/Comment: DVT - Gastrointestinal Hx Gastrointestinal Disorders: No - Genitourinary/Gynecological Hx Genitourinary Disorders: Yes Other/Comment: ovarian cyst removed - laparscopic - Psychiatric Hx Psychophysiologic Disorder: No Hx Substance Use: No - Surgical History Other/Comment: laporoscopy - Anesthesia Hx Anesthesia: Yes Hx Anesthesia Reactions: No Hx Malignant Hyperthermia: No Family/Social History - Physician Review Nursing Documentation Reviewed: Yes Family/Social History: Unknown Family HX Smoking Status: Former Smoker Hx Alcohol Use: Yes Frequency of alcohol use: Socially Hx Substance Use: No Hx Substance Use Treatment: No Allergies/Home Meds Allergies/Adverse Reactions: Allergies No Known Allergies Allergy (Verified 06/01/18 19:19) Home Medications: Home Meds Medication Instructions Recorded Confirmed Rivaroxaban [Xarelto] 20 mg PO DAILY 11/13/17 06/01/18 Review of Systems - Physician Review All systems were reviewed & negative as marked: Yes - Review of Systems Constitutional: Normal. absent: Fevers Eyes: Normal ENT: Normal Respiratory: Normal. absent: SOB, Cough Cardiovascular: Chest Pain Gastrointestinal: Normal. absent: Abdominal Pain, Diarrhea, Nausea, Vomiting Genitourinary Female: Normal. absent: Dysuria, Frequency, Hematuria, Urine Output Changes Musculoskeletal: Normal. absent: Back Pain, Neck Pain Skin: Normal. absent: Rash Neurological: Normal. absent: Headache, Dizziness Endocrine: Normal Hemo/Lymphatic: Normal Psychiatric: Normal Physical Exam Vital Signs Reviewed: Yes Vital Signs Temp Pulse Resp BP Pulse Ox 06/01/18 22:40 98.2 F 78 17 150/73 98 06/01/18 22:25 78 17 150/73 98 06/01/18 19:26 98.4 F 89 18 137/70 97 06/01/18 19:25 98.4 F 89 18 137/70 97 Temperature: Afebrile Blood Pressure: Normal Pulse: Regular Respiratory Rate: Normal Appearance: Positive for: Well-Appearing, Non-Toxic, Comfortable Pain Distress: None Mental Status: Positive for: Alert and Oriented X 3 - Systems Exam Head: Present: Atraumatic, Normocephalic Pupils: Present: PERRL Extroacular Muscles: Present: EOMI Conjunctiva: Present: Normal Mouth: Present: Moist Mucous Membranes Neck: Present: Normal Range of Motion Respiratory/Chest: Present: Clear to Auscultation, Good Air Exchange. No: Respiratory Distress, Accessory Muscle Use Cardiovascular: Present: Regular Rate and Rhythm, Normal S1, S2. No: Murmurs Abdomen: No: Tenderness, Distention, Peritoneal Signs Back: Present: Normal Inspection Upper Extremity: Present: Normal Inspection. No: Cyanosis, Edema Lower Extremity: Present: Normal Inspection. No: Edema Neurological: Present: GCS=15, CN II-XII Intact, Speech Normal Skin: Present: Warm, Dry, Normal Color. No: Rashes Psychiatric: Present: Alert, Oriented x 3, Normal Insight, Normal Concentration Medical Decision Making ED Course and Treatment: 06/01/18 19:40 Impression: 37 year old female brought in for left-sided chest pain today. Plan: -- CTA Chest -- EKG -- Labs, cardiac enzymes -- Urinalysis -- Reassess and disposition Prior Visits: Notes and results from previous visits were reviewed. Progress Notes: Reviewed EKG, NSR at [address]-segment elevations or depressions, no T-wave inversions, normal intervals. 06/01/18 22:15 CTA Chest shows: Pulmonary arteries: Adequate contrast enhancement of the pulmonary arteries. No evidence of filling defects in the cardiac chambers. Aorta: No evidence of aortic dissection. Other arteries: Chronic atherosclerotic calcification of the vasculature. Lungs: No evidence endobronchial lesion. Mild bilateral lower lobe dependent air space opacityatelectasis/edema. Pleural space: No evidence of pleural effusion. No evidence of pneumothorax. Heart: Heart appears within normal limits, no pericardial effusion. Mediastinum: Moderate up to 2 cm fluid density anterior mediastinum, stable. Bones/joints: Musculoskeletal structures appear intact. Multi-level degenerative changes involve the thoracic spine. Soft tissues: Unremarkable. Lymph nodes: No significant lymphadenopathy. IMPRESSION: 1. No evidence of pulmonary embolism. 2. Moderate up to 2 cm fluid density anterior mediastinum, stable. 3. Mild bilateral lower lobe dependent air space opacity-atelectasis/edema. 06/01/18 22:40 On re-evaluation, patient feels better and is in no acute distress. I have discussed the results and plan with the patient, who expresses understanding. Patient in agreement with plan to be discharged home. Patient is stable for discharge. Patient was instructed to follow up with physician or return if symptoms worsen or new concerning symptoms arise. - Lab Interpretations Lab Results: 06/01/18 20:10 06/01/18 20:10 Lab Results 06/01/18 20:10: Sodium 142, Potassium 3.7, Chloride 104, Carbon Dioxide 26, Anion Gap 16, BUN 15, Creatinine 0.8, Est GFR ( Amer) > 60, Est GFR (Non- Af Amer) > 60, Random Glucose 96, Calcium 8.9, Magnesium 2.0, Total Bilirubin 0.4, AST 105 H D, ALT 204 H, Alkaline Phosphatase 104, Lactate Dehydrogenase 547 , Total Creatine Kinase 67, Troponin I < 0.01, Total Protein 8.3, Albumin 4.4, Globulin 3.9, Albumin/Globulin Ratio 1.1 06/01/18 20:10: Urine Color Light yellow, Urine Appearance Clear, Urine pH 6.0, Ur Specific [place] 1.025, Urine Protein Trace H, Urine Glucose (UA) Negative, Urine Ketones Negative, Urine Blood Large H, Urine Nitrate Negative, Urine Bilirubin Negative, Urine Urobilinogen 0.2, Ur Leukocyte Esterase Negative, Urine RBC 2 - 5, Urine WBC Negative, Ur Epithelial Cells 1 - 3, Urine Bacteria Neg 06/01/18 20:10: PT 13.8 H, INR 1.21, APTT 33.0 06/01/18 20:10: WBC 10.0, RBC 4.86, Hgb 13.2 D, Hct 40.3, MCV 82.9 D, MCH 27.2 , MCHC 32.8, RDW 13.6, Plt Count 330, MPV 9.5, Gran % 68.2 H, Lymph % (Auto) 24.7, [place] % (Auto) 6.0, Eos % (Auto) 1.0 L, Baso % (Auto) 0.1, Gran # 6.80 H, Lymph # (Auto) 2.5, [place] # (Auto) 0.6, Eos # (Auto) 0.1, Baso # (Auto) 0.01 I have reviewed the lab results: Yes - RAD Interpretation Radiology Orders: 06/01/18 19:45 ANGIO CHEST PE PROTOCOL [CT] Stat Rivet Sticker: Radiologist - EKG Interpretation Interpreted by ED Physician: Yes Type: 12 lead EKG - Scribe Statement The provider has reviewed the documentation as recorded by the Manish Martinez Provider Scribe Attestation: All medical record entries made by the Scribe were at my direction and personally dictated by me. I have reviewed the chart and agree that the record accurately reflects my personal performance of the history, physical exam, medical decision making, and the department course for this patient. I have also personally directed, reviewed, and agree with the discharge instructions and disposition. Disposition/Present on Arrival - Present on Arrival Any Indicators Present on Arrival: No History of DVT/PE: Yes History of Uncontrolled Diabetes: No Urinary Catheter: No History of Decub. Ulcer: No History Surgical Site Infection Following: None - Disposition Have Diagnosis and Disposition been Completed?: Yes Diagnosis: Chest pain Disposition: HOME/ ROUTINE Disposition Time: 22:40 Condition: GOOD Discharge Instructions (ExitCare): Chest Pain, Chest Pain (ED) Forms: [employer] (Pashto)
[2018-06-01 22:26] VITALS: BP 150/73; PULSE 78; RESP 17; O2SAT 98
[2018-06-01 22:41] VITALS: TEMP 98.2
--- NOTE | 2018-06-02 09:53 | CARD ---
APPROVED REPORT Date of service: 06/01/2018 EKG Measurement Heart [id number] <Conclusion> Normal sinus rhythm Normal ECG
--- NOTE | 2018-06-02 10:32 | CT ---
Date of service: 06/01/2018 PROCEDURE: CT Chest with contrast (Pulmonary Angiogram) HISTORY: LEFT CP COMPARISON: None available. TECHNIQUE: Axial computed tomography images were obtained of the chest in the pulmonary arterial phase of enhancement. Coronal and sagittal reformatted images were created and reviewed. Intravenous contrast dose: 100 cc of Omni 350 Radiation dose: Total exam DLP = 351 mGy-cm. This CT exam was performed using one or more of the following dose reduction techniques: Automated exposure control, adjustment of the mA and/or kV according to patient size, and/or use of iterative reconstruction technique. FINDINGS: PULMONARY ARTERIES: Unremarkable. No pulmonary embolism. AORTA: No acute findings. No thoracic aortic aneurysm. There is a low-density soft tissue mass in the anterior mediastinum that most likely represents residual thymic tissue. LUNGS: Unremarkable. No nodule, mass or pulmonary consolidation. PLEURAL SPACES: Unremarkable. No effusion or pneumothorax. HEART: Unremarkable. No cardiomegaly. No significant pericardial effusion. LYMPH NODES: No lymphadenopathy. BONES, CHEST WALL: Unremarkable. No fracture or destructive lesion OTHER FINDINGS: The report concurs with the preliminary [facility] report IMPRESSION: Unremarkable CT pulmonary angiogram. No pulmonary embolus.
== END 2018-06-01 22:41 | disposition home or self-care (01) ==
LOC: ED 19:11
DX: R07.9 Chest pain, unspecified (principal); Z87.891 Personal history of nicotine dependence
CPT/HCPCS: 71275; 80053; 81001; 82550; 83615; 83735; 84484; 85025; 85610; 85730; 93005; 99284; Q9967

== ENCOUNTER 2018-08-07 22:44 | Emergency (ER) | payer MEDICAID ==
[2018-08-07 22:45] VITALS: BMI 32.6
[2018-08-07 23:00] VITALS: O2SAT 99
--- NOTE | 2018-08-08 01:37 | ED PDOC ---
Arrival/HPI - General Chief Complaint: Lower Extremity Problem/Injury Time Seen by Provider: 08/07/18 23:53 Historian: Patient - History of Present Illness Narrative History of Present Illness (Text): 08/08/18 01:36 38yr old female with a history of blood clot in the left leg presents today with a pain that started in the lower calf today. Patient denies numbness weakness or tingling in the extremities. Patient states she just completed taking blood thinners on 07/17 for her previous DVT. Patient denies any recent trauma or injury. She denies fevers or chills. Patient states she has an achy pain along the medial aspect of the lower leg in the calf. Patient's refusing any medications here for pain in the emergency room she just wants to make sure that she does not have another blood clot in the leg. Past Medical History - Provider Review Nursing Documentation Reviewed: Yes - Travel History Have you recently traveled outside [place] w/in the past 3 mons?: No - Past History Past History: No Previous - Infectious Disease Hx of Infectious Diseases: None - Reproductive Menopause: No - Cardiac Hx Cardiac Disorders: No - Pulmonary Hx Respiratory Disorders: No - Neurological Hx Neurological Disorder: No - HEENT Hx HEENT Disorder: No - Renal Hx Renal Disorder: No - Endocrine/Metabolic Hx Endocrine Disorders: No - Hematological/Oncological Hx Blood Disorders: Yes Hx Anemia: Yes (iron deficiency) Other/Comment: blood clot left leg - Integumentary Hx Dermatological Disorder: No - Musculoskeletal/Rheumatological Hx Musculoskeletal Disorders: Yes Other/Comment: DVT - Gastrointestinal Hx Gastrointestinal Disorders: No - Genitourinary/Gynecological Hx Genitourinary Disorders: Yes Other/Comment: ovarian cyst removed - laparscopic - Psychiatric Hx Psychophysiologic Disorder: No Hx Substance Use: No - Surgical History Other/Comment: laporoscopy - Anesthesia Hx Anesthesia: Yes Hx Anesthesia Reactions: No Hx Malignant Hyperthermia: No Family/Social History - Physician Review Nursing Documentation Reviewed: Yes Family/Social History: Unknown Family HX Smoking Status: Former Smoker Hx Alcohol Use: Yes Hx Substance Use: No Hx Substance Use Treatment: No Allergies/Home Meds Allergies/Adverse Reactions: Allergies No Known Allergies Allergy (Verified 06/01/18 19:19) Home Medications: Home Meds Medication Instructions Recorded Confirmed Unobtainable 08/07/18 08/07/18 Review of Systems - Review of Systems Constitutional: absent: Fatigue, Fevers Respiratory: absent: SOB, Cough Cardiovascular: absent: Chest Pain, Palpitations Gastrointestinal: absent: Abdominal Pain, Nausea, Vomiting Musculoskeletal: Arthralgias Skin: absent: Rash, Pruritis Neurological: absent: Headache, Dizziness Psychiatric: absent: Anxiety, Depression Physical Exam Vital Signs Reviewed: Yes Vital Signs Temp Pulse Resp BP Pulse Ox 08/07/18 22:56 99 F 80 16 117/77 99 Temperature: Afebrile Blood Pressure: Normal Pulse: Regular Respiratory Rate: Normal Appearance: Positive for: Well-Appearing, Non-Toxic, Comfortable Pain Distress: None Mental Status: Positive for: Alert and Oriented X 3 - Systems Exam Head: Present: Atraumatic Mouth: Present: Moist Mucous Membranes Neck: Present: Normal Range of Motion Respiratory/Chest: Present: Clear to Auscultation, Good Air Exchange. No: Respiratory Distress, Accessory Muscle Use Cardiovascular: Present: Regular Rate and Rhythm, Normal S1, S2. No: Murmurs Upper Extremity: Present: Normal ROM Lower Extremity: Present: Normal Inspection, CALF TENDERNESS (+ left calf tenderness), NORMAL PULSES, Normal ROM, Capillary Refill < 2 s. No: Tenderness, Swelling, Erythema, Deformity Neurological: Present: GCS=15, Speech Normal Skin: Present: Warm, Dry, Normal Color. No: Rashes Psychiatric: Present: Alert, Oriented x 3 Medical Decision Making ED Course and Treatment: 08/08/18 01:37 Patient is nontoxic well-appearing in no distress with stable vital signs lungs are clear to auscultation bilaterally. Venous duplex of the Left lower leg; no dvt pt refused medications for pain. Patient reassessment; patient is nontoxic well-appearing in no distress with stable vital signs I discussed the results with patient about followup with a primary care physician within the next 2 days as well as the orthopedist. I've advised return if symptoms worsen persist or if there's concerning symptoms develop. Patient verbalizes understanding of discharge instructions and need for immediate followup. all aspects of this case were discussed the attending of record. Impression: Leg pain increase fluids follow up with the primary care physician within the next 2 days. Follow up with the orthopedist within the next 2 days. return if symptoms worsen,persist or if new symptoms develop. - RAD Interpretation Radiology Orders: 08/07/18 23:53 DUPLEX LOWER EXTRM VEIN LEFT [US] Stat Disposition/Present on Arrival - Present on Arrival Any Indicators Present on Arrival: Yes History of DVT/PE: Yes History of Uncontrolled Diabetes: No Urinary Catheter: No History of Decub. Ulcer: No History Surgical Site Infection Following: None - Disposition Have Diagnosis and Disposition been Completed?: Yes Diagnosis: Leg pain Disposition: HOME/ ROUTINE Disposition Time: 01:00 Patient Plan: Discharge Patient Problems: Current Active Problems Problem Status Onset Leg pain Acute Condition: GOOD Discharge Instructions (ExitCare): Muscle and Bone Pain (DC) Additional Instructions: increase fluids follow up with the primary care physician within the next 2 days. Follow up with the orthopedist within the next 2 days. return if symptoms worsen,persist or if new symptoms develop. Referrals: Sales Representative [employer] [Outside] - Follow up with primary Piedad Alston MD [Medical Doctor] - Follow up with primary Jer Zuniga DO [Staff Provider] - Follow up with primary [facility] [Outside] - Follow up with primary Forms: [employer] (Lao), WORK NOTE
[2018-08-08 01:46] VITALS: BP 123/82; PULSE 68; RESP 17; TEMP 98.2
== END 2018-08-08 01:46 | disposition home or self-care (01) ==
LOC: ED 22:44
DX: M79.605 Pain in left leg (principal); Z86.718 Personal history of other venous thrombosis and embolism

== ENCOUNTER 2019-03-01 09:39 | Emergency (ER) | payer MEDICAID ==
[2019-03-01 09:40] VITALS: BMI 32.6
[2019-03-01 10:20] VITALS: TEMP 98.1
--- NOTE | 2019-03-01 10:39 | ED PDOC ---
Arrival/HPI - General Chief Complaint: Female Genitourinary Time Seen by Provider: 03/01/19 09:52 Historian: Patient - Critical Care Narrative Critical Care (Text): 03/01/19 10:25 Patient sts she is at the end of her menstrual period and she put tampon last night before going out. Patient sts she was drinking alcohol last night and she doesn't remember taking out tampon. This morning she couldn't find tampon in the vagina and she felt some discomfort in the suprapubic area. - History of Present Illness Symptom Course: Unchanged Past Medical History - Provider Review Nursing Documentation Reviewed: Yes - Past History Past History: No Previous - Infectious Disease Hx of Infectious Diseases: None - Cardiac Hx Cardiac Disorders: No - Pulmonary Hx Respiratory Disorders: No - Neurological Hx Neurological Disorder: No - HEENT Hx HEENT Disorder: No - Renal Hx Renal Disorder: No - Endocrine/Metabolic Hx Endocrine Disorders: No - Hematological/Oncological Hx Blood Disorders: Yes Hx Anemia: Yes (iron deficiency) Other/Comment: blood clot left leg - Integumentary Hx Dermatological Disorder: No - Musculoskeletal/Rheumatological Hx Musculoskeletal Disorders: Yes Other/Comment: DVT. Scoliosis - Gastrointestinal Hx Gastrointestinal Disorders: No - Genitourinary/Gynecological Hx Genitourinary Disorders: Yes Other/Comment: ovarian cyst removed - laparscopic - Psychiatric Hx Psychophysiologic Disorder: No Hx Substance Use: No - Surgical History Other/Comment: laporoscopy - Anesthesia Hx Anesthesia: Yes Hx Anesthesia Reactions: No Hx Malignant Hyperthermia: No Family/Social History - Physician Review Nursing Documentation Reviewed: Yes Family/Social History: No Known Family HX Smoking Status: Former Smoker Hx Alcohol Use: Yes Frequency of alcohol use: Socially Hx Substance Use: No Hx Substance Use Treatment: No Allergies/Home Meds Allergies/Adverse Reactions: Allergies No Known Allergies Allergy (Verified 03/01/19 10:01) Home Medications: Home Meds Medication Instructions Recorded Confirmed Unobtainable 08/07/18 08/07/18 Review of Systems - Physician Review All systems were reviewed & negative as marked: Yes Physical Exam Vital Signs Reviewed: Yes Vital Signs Temp Pulse Resp BP Pulse Ox 03/01/19 10:01 98.1 F 68 18 109/71 98 Temperature: Afebrile Blood Pressure: Normal Pulse: Regular Respiratory Rate: Normal Appearance: Positive for: Well-Appearing, Non-Toxic, Comfortable Pain Distress: None Mental Status: Positive for: Alert and Oriented X 3 - Systems Exam Head: Present: Atraumatic, Normocephalic Respiratory/Chest: Present: Clear to Auscultation, Good Air Exchange. No: Respiratory Distress, Accessory Muscle Use Cardiovascular: Present: Regular Rate and Rhythm, Normal S1, S2 Abdomen: Present: Normal Bowel Sounds. No: Tenderness, Distention, Peritoneal Signs, Rebound, Guarding Genitourinary/Pelvic Exam: Present: Normal External Genitalia, Vaginal Bleeding (small amount of dark blood seen in the vagina and cervix area), Cervical os Closed, Other (no FB). No: Vaginal Discharge, Vaginal Lesions, Adenexal Tenderness, Adenexal Mass, Cervical Motion Tendernes, Odor Back: Present: Normal Inspection. No: Midline Tenderness, Paraspinal Tenderness Upper Extremity: Present: Normal Inspection. No: Edema Lower Extremity: Present: Normal Inspection. No: Edema Skin: Present: Warm, Dry, Normal Color. No: Rashes Psychiatric: Present: Alert, Oriented x 3, Normal Insight, Normal Concentration Medical Decision Making ED Course and Treatment: 03/01/19 11:15 UA- sent, no signs of UTI, small amount of RBCs are due to the menstrual blood. Patient will be /c home, no treatment needed. Disposition/Present on Arrival - Present on Arrival Any Indicators Present on Arrival: No History of DVT/PE: Yes History of Uncontrolled Diabetes: No Urinary Catheter: No History of Decub. Ulcer: No History Surgical Site Infection Following: None - Disposition Have Diagnosis and Disposition been Completed?: Yes Diagnosis: Foreign body in vagina Disposition: HOME/ ROUTINE Disposition Time: 11:16 Condition: STABLE Discharge Instructions (ExitCare): Menstruation Additional Instructions: Follow up with PMD and OBGYN as needed. Return to ED if feel worse. Forms: [employer] ([place])
[2019-03-01 10:47] LABS: PH,URINE 5.5 (4.7-8.0); URINE BILIRUBIN NEGATIVE (NEGATIVE); URINE BLOOD LARGE (NEGATIVE); URINE GLUCOSE (UA) NEGATIVE (NEGATIVE); URINE LEUKOCYTE ESTERASE NEGATIVE Leu/uL (NEGATIVE); URINE PROTEIN TRACE mg/dL (<30 mg/dL); URINE UROBILINOGEN 0.2 E.U./dL (<1 E.U./dL)
[2019-03-01 10:50] LABS: URINE APPEARANCE SL CLOUDY (CLEAR); URINE COLOR YELLOW (YELLOW)
[2019-03-01 11:06] VITALS: BP 97/62; PULSE 64; RESP 16; O2SAT 99
[2019-03-01 11:08] LABS: URINE BACTERIA MANY /hpf; URINE RBC 25 - 30 /hpf (0-2)
== END 2019-03-01 11:26 | disposition home or self-care (01) ==
LOC: ED 09:39
DX: T19.2XXA Foreign body in vulva and vagina, initial encounter (principal); Z87.891 Personal history of nicotine dependence